=== PATIENT | male | born 1980 | race Caucasian/White ===

== ENCOUNTER 2019-09-30 17:43 | Emergency (ER) | payer OTHER ==
[2019-09-30 17:56] VITALS: BP 153/115
--- NOTE | 2019-09-30 18:25 | ED ---
Lower Extremity - HPI Summary HPI Summary: 39 yr old with the complaint of lateral right thigh numbness and burning pain. Onset of pain a year ago. and tonight the recurrence started at 530 pm. The pain is moderate. No focal weakness. The patient has no back pain, no bowel or bladder incontinence. No rash. No change in vision, speech, hearing, swallowing. he has no primary care doctor. - History of Current Complaint Chief Complaint: UCLowerExtremity Stated Complaint: RIGHT THIGH PAIN Time Seen by Provider: 09/30/19 18:04 Pain Intensity: 5 - Allergies/Home Medications Allergies/Adverse Reactions: Allergies Allergy/AdvReac Type Severity Reaction Status Date / Time No Known Allergies Allergy Verified 09/30/19 17:56 Home Medications: Home Medications Naproxen Sodium [Aleve] 220 mg PO Q12H PRN 09/30/19 [History Confirmed 09/30/19] PMH/Surg Hx/FS Hx/Imm Hx - Surgical History Surgery Procedure, Year, and Place: [facility]--AGE 15 Infectious Disease History: No Infectious Disease History: Denies: Traveled Outside the [place] in Last 30 Days - Family History Known Family History: Positive: None - Social History Alcohol Use: Weekly Alcohol Amount: W[place] 8-10 BEERS Substance Use Type: Reports: None Substance Use Comment - Amount & Last Used: 2 X WK, 6 X MO Smoking Status (MU): Never Smoked Tobacco Have You Smoked in the Last Year: No Review of Systems Positive: Other - right lateral leg pain, numbness. All Other Systems Reviewed And Are Negative: Yes Physical Exam Triage Information Reviewed: Yes Vital Signs On Initial Exam: Initial Vitals Temp Pulse Resp BP Pulse Ox 98.6 F 74 16 153/115 99 09/30/19 17:51 09/30/19 17:51 09/30/19 17:51 09/30/19 17:51 09/30/19 17:51 Vital Signs Reviewed: Yes Appearance: Positive: Well-Appearing, No Pain Distress Skin: Positive: Warm, Skin Color Reflects Adequate Perfusion, Other - no rash on the leg Head/Face: Positive: Normal Head/Face Inspection Eyes: Positive: EOMI ENT: Positive: Normal ENT inspection Neck: Positive: Nontender Respiratory/Lung Sounds: Positive: Clear to Auscultation Cardiovascular: Positive: RRR. Negative: Murmur Abdomen Description: Positive: Nontender Musculoskeletal: Positive: Normal, Strength/ROM Intact Neurological: Positive: Sensory/Motor Intact - except the right lateral thigh only where he says it feels odd/ tingly., Alert, Oriented to Person Place, Time , CN Intact II-III Psychiatric: Positive: Normal Diagnostics - Vital Signs Vital Signs Temp Pulse Resp BP Pulse Ox 09/30/19 17:51 98.6 F 74 16 153/115 99 - Laboratory Lab Statement: Any lab studies that have been ordered have been reviewed, and results considered in the medical decision making process. Lower Extremity Course/Dx - Course Course Of Treatment: 39 yr old with lateral thigh burning, numbness, and HTN. recommend to ER for further work up, MRI of back. - Diagnoses Provider Diagnoses: Thigh numbness, Hypertension Discharge ED - Sign-Out/Discharge Documenting (check all that apply): Patient Departure All imaging exams completed and their final reports reviewed: No Studies - Discharge Plan Condition: Good Disposition: HOME-RECOMMEND TO ED Patient Education Materials: Hypertension (ED), Lumbar Radiculopathy (ED) Referrals: No Primary Care Phys,NOPCP [Primary Care Provider] - [facility] [place] [facility] [Outside] Additional Instructions: You need to go to the ER for further evaluation of your right thigh numbness and your blood pressure. - Billing Disposition and Condition Condition: GOOD Disposition: Home-Recommend to ED
== END 2019-09-30 18:19 | disposition home health service (06) ==
LOC: UCCORT 17:43
DX: R20.0 Anesthesia of skin (principal); I10 Essential (primary) hypertension; M79.651 Pain in right thigh; Z79.1 Long term (current) use of non-steroidal anti-inflammatories (NSAID)
CPT/HCPCS: 99202; G0463